=== PATIENT | female | born 2005 | race Caucasian/White ===

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

== ENCOUNTER 2024-03-26 13:38 | Emergency (ER) | payer OTHER, SELFPAY ==
--- NOTE | ~2024-03-26 | XR_ITS ---
EXAM: XR elbow LT min 3V DATE: 03/26/2024 13:57 HISTORY: HIT ELBOW ON TABLE,GEN PAIN, HX OF FX . COMPARISON: None available. FINDINGS: Normal mineralization. No fracture or dislocation. No lytic or blastic lesion. Joint space s are maintained. No erosion or periosteal change. Soft tissues within normal limits. IMPRESSION: No acute osseous finding in the left elbow. Reviewed, dictated and finalized at location K. ITY AIDE
[2024-03-26 13:44] VITALS: BP 123/64; PULSE 68; RESP 16; TEMP 36.6; O2SAT 99
--- NOTE | 2024-03-26 14:03 | ED_ITS ---
HPI - Extremity Injury (Upper) General Chief Complaint: Extremity Injury, Upper Stated Complaint: left elbow pain History of Present Illness HPI narrative: Patient presents for evaluation of left elbow pain. Patient states she has a history of a fracture to that left elbow and is concerned since she re-injured it last night when she hit it on a glass table top. Related Data Home Medications Medication Instructions Recorded Confirmed No Home Medications 03/26/24 03/26/24 Allergies Allergy/AdvReac Type Severity Reaction Status Date / Time No Known Allergies Allergy Verified 03/26/24 13:58 Review of Systems Review of Systems: CONSTITUTIONAL: Denies fever, chills, or sweats. EYES: Denies visual changes, redness, or discharge. ENT: Denies rhinorrhea, congestion, sore throat, or otalgia. CARDIOVASCULAR: Denies chest pain, palpitations, or edema. RESPIRATORY: Denies cough or dyspnea. GASTROINTESTINAL: Denies abdominal pain, nausea, vomiting, or diarrhea. GENITOURINARY: Denies dysuria or hematuria. SKIN: Denies rash or itching. MUSCULOSKELETAL: Denies back pain, joint pain, or myalgia. NEUROLOGIC: Denies headache, numbness, or weakness. PSYCHIATRIC: Denies anxiety or depression. PMFSH Comments At time of signature, agree with nursing past medical, surgical, social and family history. There is no relevant family history pertinent to the presenting complaint Exam Narrative: GENERAL: Well-appearing, well-nourished, and in no acute distress. HEAD: Normocephalic, atraumatic. EYES: PERRLA and EOMI. ENT: Nares clear, no rhinorrhea or epistaxis. Mucous membranes moist. NECK: Supple. CHEST: Clear to auscultation. No respiratory distress. HEART: Regular rate and rhythm. No murmur heard. Normal peripheral pulses. ABDOMEN: Soft, nontender, nondistended, normal active bowel sounds. EXTREMITIES: Normal range of motion. No edema. SKIN: Warm, dry, no rash.AND EXAM - Skin intact, no laceration, no swelling, no erythema, normal digit cascade with flexion of fingers, median nerve, ulnar nerve, radial nerve is intact. Normal sensation of each side of each finger, can perform `ok? sign, `cross over finger test of index and middle fingers? and `thumbs up? sign, normal thumb opposition, no scissoring. good capillary refill and radial pulse. normal flexion and extension of fingers and wrist. normal supination at wrist. Normal forearm and elbow exam. NEURO: No focal deficits. Alert and oriented x3. Raf Coma Scale Eye Opening: Spontaneous 4 Raf Coma Scale Motor: Obeys Commands 6 [place] Coma Scale Verbal: Oriented 5 Raf Coma Scale Total 15 Course Course Level of Care: Express Care Visit Vital Signs Vital signs: Vital Signs Temperature 36.6 C 03/26/24 13:44 Pulse Rate 68 03/26/24 13:44 Respiratory Rate 16 03/26/24 13:44 Blood Pressure 123/64 03/26/24 13:44 Pulse Oximetry 99 03/26/24 13:44 Oxygen Delivery Room Air 03/26/24 13:44 Temperature 36.6 C 03/26/24 13:44 Pulse Rate 68 03/26/24 13:44 Respiratory Rate 16 03/26/24 13:44 Blood Pressure 123/64 03/26/24 13:44 Pulse Oximetry 99 03/26/24 13:44 Oxygen Delivery Room Air 03/26/24 13:44 MDM - Extremity Injury (Upper) Imaging Data Radiologist's impression: Express Care [place] [id number] [address] [employer] [address] [place] [id number] XRay Report Signed Patient: Susan Nuñez : 2005 MR#: [id number] Age: 19 Acct:[id number] Loc: [facility] ADM Date: 03/26/24Attending Dr: Ordering Physician: Reshma Shoemaker APRN Date of Service: 03/26/24 Procedure(s): XR elbow LT min 3V Accession Number(s): [id number] cc: Reshma Shoemaker APRN; Rachael Harrison MD~ EXAM: XR elbow LT min 3V DATE: 03/26/2024 13:57 HISTORY: HIT ELBOW ON TABLE,GEN PAIN, HX OF FX . COMPARISON: None available. FINDINGS: Normal mineralization. No fracture or dislocation. No lytic or blastic lesion. Joint spaces are maintained. No erosion or periosteal change. Soft tissues within normal limits. IMPRESSION: No acute osseous finding in the left elbow. Discharge Plan Discharge Clinical Impression: Elbow contusion Patient Disposition: Home, Self-Care Condition: Stable Instructions: Elbow Strain (ED) Additional Instructions: Ice to the area 20-30 minutes 4-6 times a day Elevate above heart Tylenol for lesser pain Ibuprofen regularly for the next 2-3 days for the inflammation Follow-up with PCP if further problems or concerns -If you have any worsening of symptoms or any other concerns please go to the ED immediately. Prescriptions: No Action No Home Medications Follow-up/Referrals: Rachael Harrison MD [Primary Care Provider] -
== END 2024-03-26 14:12 | disposition home or self-care (01) ==
PROVIDERS: Emergency Provider Nurse Practitioner Family; PCP Pediatrics
DX: S50.02XA Contusion of left elbow, initial encounter (principal); W22.8XXA Striking against or struck by other objects, initial encounter
CPT/HCPCS: 73080; 99213; G0463